=== PATIENT | male | born 1980 | race Caucasian/White ===

== ENCOUNTER 2018-12-22 20:11 | Emergency (ER) | payer OTHER ==
--- NOTE | 2018-12-22 21:54 | ED Physician Documentation ---
PD HPI GI BLEED - Stated complaint Stated Complaint: BLOOD IN STOOL - Chief complaint Chief Complaint: Abd Pain - History obtained from History obtained from: Patient - History of Present Illness Timing - onset: Yesterday Timing - details: Abrupt onset (he had some LLQ pain. Had BM of formed stool and then noted red blood in toilet when went to flush. This was yesterday and had similar episode today. No spotting of blood between. No improvement in LLQ pain.) Associated symptoms: BRBPR, Abdominal pain (LLQ for 2-3 days.). No: Maroon stool, Black/tarry stool, Diarrhea, Constipation Contributing factors: No: Sick contact, Bad food, Recent antibiotics Similar symptoms before: Has not had sx before Recently seen: Not recently seen Review of Systems Constitutional: denies: Fever, Myalgias Nose: denies: Rhinorrhea / runny nose, Congestion Throat: denies: Sore throat Respiratory: denies: Cough GI: reports: Abdominal Pain, Bloody / black stool. denies: Nausea, Vomiting, Constipation, Diarrhea : denies: Dysuria, Frequency Neurologic: denies: Generalized weakness, Near syncope Endocrine: denies: Easy bruising / bleeding Immunocompromised: denies: Immunocompromised PD PAST MEDICAL HISTORY - Past Medical History Past Medical History: No Cardiovascular: None Respiratory: None Neuro: None Endocrine/Autoimmune: None GI: None : None HEENT: None Psych: None Musculoskeletal: None Derm: None - Past Surgical History Past Surgical History: Yes General: Other - Present Medications Home Medications: Ambulatory Orders Medication Instructions Recorded Confirmed Amox/Clav 875/125 [Augmentin] 1 each PO Q12H #14 tablet 12/23/18 Naproxen 500 mg PO BID #20 tablet 12/23/18 - Allergies Allergies/Adverse Reactions: Allergies Allergy/AdvReac Type Severity Reaction Status Date / Time No Known Drug Allergies Allergy Verified 12/22/18 20:20 - Social History Does the pt smoke?: No Smoking Status: Never smoker Does the pt drink ETOH?: Yes Does the pt have substance abuse?: No - Immunizations Immunizations are current?: Yes - POLST Patient has POLST: No PD ED PE NORMAL - Vitals Vital signs reviewed: Yes - General General: Alert and oriented X 3, No acute distress, Well developed/nourished - Neck Neck: Supple, no meningeal sign, No adenopathy - Cardiac Cardiac: RRR, No murmur - Respiratory Respiratory: Clear bilaterally - Abdomen Abdomen: Normal bowel sounds, Soft, Non distended, No organomegaly, Other (tender without guarding left mid abd. No percussion tenderness. ) - Male Male : Other (normal genitalia. ) - Rectal Rectal: Other (no hemorrhoids. Normal digital exam. red blood in vault, small amount. ) Results - Vitals Vitals: Vital Signs - 24 hr 12/22/18 12/22/18 12/22/18 20:19 21:49 23:42 Temperature 37.4 C 36.4 C L Heart Rate 62 50 L Respiratory 19 16 16 Rate Blood Pressure 132/69 H 125/75 O2 Saturation 97 100 12/22/18 12/23/18 23:56 00:05 Temperature Heart Rate Respiratory 16 16 Rate Blood Pressure O2 Saturation Oxygen O2 Source Room air - Labs Labs: Laboratory Tests 12/22/18 12/22/18 22:45 22:45 WBC 6.3 RBC 4.67 L Hgb 13.4 L Hct 40.7 L MCV 87.2 MCH 28.7 MCHC 32.9 RDW 13.1 Plt Count 172 MPV 11.1 Neut # (Auto) 3.1 Lymph # (Auto) 2.5 [place] # (Auto) 0.4 Eos # (Auto) 0.2 Baso # (Auto) 0.1 Absolute Nucleated RBC 0.00 Nucleated RBC % 0.0 Sodium 140 Potassium 3.5 Chloride 104 Carbon Dioxide 26 Anion Gap 10.0 BUN 16 Creatinine 1.1 Estimated GFR (MDRD) 75 L Glucose 100 Calcium 9.1 Total Bilirubin 0.5 AST 32 ALT 24 Alkaline Phosphatase 51 Total Protein 7.2 Albumin 4.2 Globulin 3.0 Albumin/Globulin Ratio 1.4 Lipase 50 - Rads (name of study) abd/pelvic CT Radiology: Prelim report reviewed, Discussed with rads (no acute process in abd. incidental nodule in lung 5 mm, recommends repeat imaging in 3-6 months. ), See rad report PD MEDICAL DECISION MAKING - ED course Complexity details: reviewed results (no tumors nor obvious focal infection. Will treat as possible diverticulitis. However to strongly consider colonoscopy to ensure no other pathology.), re-evaluated patient, considered differential (given the Left abd pain and bloody stool, consider colitis or diverticulitis as most likely. ), d/w patient, d/w family () Departure - Departure Disposition: 01 Home, Self Care Clinical Impression: Lower GI bleeding, Left lower quadrant abdominal pain, Lung nodule < 6cm on CT Condition: Stable Record reviewed to determine appropriate education?: Yes Instructions: ED Hematochezia Stable Follow-Up: TIM MATOS MD [Primary Care Provider] - Prescriptions: Amox/Clav 875/125 [Augmentin] 1 each PO Q12H #14 tablet Naproxen 500 mg PO BID #20 tablet Comments: Stay well-hydrated and drink lots of fluids. Your CT scan did not show any obvious localized problems such as a tumor mass or even visible diverticulitis. However given your pain in the left lower quadrant along with some bloody stool, a common problem will be some diverticular irritation. We will treated with some anti-inflammatories and antibiotics presuming that for now. The CT scan does not show the lining of the intestine very well and so consideration would be for a follow-up colonoscopy to ensure no other problems in the wall of the intestine. This would be considered more in the short-term if you have persistent bleeding beyond a few more days otherwise would be considered in follow-up in the near future. Your CT scan did show an incidental small nodule in the left lower lung which are common incidental findings. Recommendation would be for repeat imaging in 6 months or so to ensure it is not changing at all. Discharge Date/Time: 12/23/18 00:55
[2018-12-22] MEDS ORDERED: IOVERSOL 320 100 ML VIAL IVP ONE (23:04)
[2018-12-22 23:07] LABS: BASOPHILS # (AUTO) 0.1 10^3/uL (0.0-0.1); EOSINOPHILS # (AUTO) 0.2 10^3/uL (0.0-0.7); EOSINOPHILS % (AUTO) 2.5 %; HGB - HEMOGLOBIN 13.4 g/dL (14.0-18.0); LYMPHOCYTES # (AUTO) 2.5 10^3/uL (1.5-3.5); MEAN CORPUSCULAR HEMOGLOBIN 28.7 pg (27.0-31.0); MEAN CORPUSCULAR HGB CONC 32.9 g/dL (32.0-36.0); MEAN CORPUSCULAR VOLUME 87.2 fL (80.0-94.0); MEAN PLATELET VOLUME 11.1 fL (7.4-11.4); MONOCYTES # (AUTO) 0.4 10^3/uL (0.0-1.0); MONOCYTES % (AUTO) 6.8 %; NEUTROPHILS # (AUTO) 3.1 10^3/uL (1.5-6.6); NEUTROPHILS % (AUTO) 49.4 %; PLT - PLATELET COUNT 172 10^3/uL (130-450); RED BLOOD COUNT 4.67 10^6/uL (4.70-6.10); RED CELL DISTRIBUTION WIDTH 13.1 % (12.0-15.0); WHITE BLOOD COUNT 6.3 x10^3/uL (4.8-10.8)
[2018-12-22 23:13] LABS: ALBUMIN 4.2 g/dL (3.2-5.5); ALBUMIN/GLOBULIN RATIO 1.4 (1.0-2.2); BILIRUBIN,TOTAL 0.5 mg/dL (0.2-1.0); CALCIUM 9.1 mg/dL (8.5-10.3); CREATININE 1.1 mg/dL (0.6-1.2); TOTAL PROTEIN 7.2 g/dL (6.7-8.2)
[2018-12-22] MEDS ORDERED: KETOROLAC 30 MG/ML VIAL IVP STA (23:22)
[2018-12-22] MEDS ORDERED: AMOX/CLAV 875 MG/125 MG TABLET PO STA (23:22)
[2018-12-22 23:42] VITALS: BP 125/75
[2018-12-23] MEDS ORDERED: IOVERSOL 320 100 ML VIAL IVP ONE (00:11)
--- NOTE | 2018-12-23 00:38 | CT Report ---
Reason: LLQ pain and GI bleeding Procedure Date: 12/23/2018 Accession Number: [id number] / [id number] Procedure: CT - Abdomen/Pelvis W CPT Code: FULL RESULT: EXAM: CT ABDOMEN AND PELVIS EXAM DATE: 12/23/2018 12:10 AM. CLINICAL HISTORY: LLQ pain and GI bleeding. COMPARISONS: None. TECHNIQUE: Routine helical CT imaging was performed through the abdomen and pelvis. IV contrast: OPTI 320 100ML. Enteric contrast: No. Reconstructions: Coronal and sagittal. In accordance with CT protocol optimization, one or more of the following dose reduction techniques were utilized for this exam: automated exposure control, adjustment of mA and/or KV based on patient size, or use of iterative reconstructive technique. FINDINGS: Lung Bases: 9 mm pulmonary nodule in the lateral segment of the left lower lobe. Two wedge shape opacities in the periphery of the right middle lobe likely reflect atelectasis.. Liver: Normal. No masses. Gallbladder/Bile Ducts: Unremarkable. Spleen: Normal. Pancreas: Normal. Adrenal Glands: Normal. Kidneys: Normal. No masses or hydronephrosis. Peritoneal Cavity/Bowel: Normal. No free fluid, free air or adenopathy. No masses or acute inflammatory process. The appendix is well visualized and normal. Pelvic Organs: Normal. The bladder and visualized pelvic organs are within normal limits. Vasculature: Normal Bones: Bilateral L5-S1 pars defects without spondylolisthesis. Otherwise, normal. Other: None. IMPRESSION: 1. No acute abdominal or pelvic process. 2. 9 mm pulmonary nodule in the left lower lobe. Consider follow-up noncontrast enhanced chest CT scan in 3 months for further evaluation. 3. Bilateral L5-S1 spondylolysis without spondylolisthesis. [facility] The call report notification system was initiated by Dr. Tony Marrufo at 12:36 AM on 12/23/2018. ADDENDUM: 12/23/18 00:44 The above call report findings of pulmonary nodule but no acute findings were discussed with Tony Looney by Dr. Tony Marrufo at 12:44 AM on 12/23/2018.
== END 2018-12-23 00:55 | disposition home or self-care (01) ==
LOC: ED 20:11
DX: K92.1 Melena (principal); R10.32 Left lower quadrant pain; R91.1 Solitary pulmonary nodule
CPT/HCPCS: 36415; 74177; 80053; 83690; 85025; 96374; 99284; A9270; Q9967